=== PATIENT | female | born 1995 | race African-American/Black ===

== ENCOUNTER 2017-01-29 05:26 | Inpatient (IN) ==
[2017-01-29] MEDS ORDERED: KEFZOL 1 GM/D5W 1 GM/50 ML IVPB IV PRN (05:39)
[2017-01-29] MEDS ORDERED: PITOCIN 30 UNITS/LR 30 UNITS/500 ML IV.SOLN IV SCH (05:39)
[2017-01-29] MEDS ORDERED: ZOFRAN IV PRN (05:39)
[2017-01-29] MEDS ORDERED: REGLAN PO ONE (05:39)
[2017-01-29] MEDS ORDERED: STADOL IV PRN (05:39)
[2017-01-29] MEDS ORDERED: PEPCID PO PRN (05:39)
[2017-01-29] MEDS ORDERED: LR 1,000 ML IV SCH (05:39)
[2017-01-29] MEDS ORDERED: PEPCID PO ONE (05:39)
[2017-01-29] MEDS ORDERED: AMPICILLIN 2 GM/NS 2 GM/100 ML IVPB IV ONE (05:39)
[2017-01-29] MEDS ORDERED: TYLENOL PO PRN (05:39)
[2017-01-29] MEDS ORDERED: PEPCID IV PRN (05:39)
[2017-01-29] MEDS ORDERED: SODIUM CHLORIDE 0.9% INJ SCH (05:45)
[2017-01-29 06:41] LABS: URINE SOURCE VOIDED
[2017-01-29 06:41] LABS: MANUAL DIFF NEEDED? NO
[2017-01-29 06:42] LABS: BASO% 0.4 % (0.0-0.8); EOS# 0.04 X1000 (0.0-0.7); EOS% 0.6 % (0.0-10.0); HEMATOCRIT 33.4 % (37.0-47.0); IMM GRAN# 0.06 X1000 (0.0-0.04); IMM GRAN% 0.9 % (0.0-0.5); LYMPH# 1.08 X1000 (1.2-3.4); LYMPH% 15.3 % (20.5-51.1); MCH 28.5 PG (27-31); MCHC 32.9 g/dL (33-37); MCV 86.5 FL (81-99); MONO# 0.74 X1000 (0.11-0.59); MONO% 10.5 % (1.7-9.3); MPV 11.8 FL (7.4-10.4); NEUT% 72.3 % (42.2-75.2); PLT 132 X1000 (130-400); RBC 3.86 XMIL (4.2-5.4)
[2017-01-29 06:51] LABS: BILIRUBIN URINE NEGATIVE (NEGATIVE); BLOOD URINE 1+ (NEGATIVE); CLARITY SL. CLOUDY (CLEAR); COLOR YELLOW; GLUCOSE URINE NEGATIVE (NEGATIVE); LEUKOCYTES URINE 2+ (NEGATIVE); NITRITE URINE NEGATIVE (NEGATIVE); PH URINE 6.5; PROTEIN URINE TRACE mg/dL (NEGATIVE); SP GRAVITY URINE 1.015
[2017-01-29 06:56] LABS: UR AMPHETAMINES QUAL NONE DETECTED (NONE DETECT); UR BARBITUATES QUAL NONE DETECTED (NONE DETECT); UR BENZODIAZEPIN QUAL NONE DETECTED (NONE DETECT); UR CANNABINOIDS QUAL NONE DETECTED (NONE DETECT); UR COCAINE QUAL NONE DETECTED (NONE DETECT); UR MDMA QUAL NONE DETECTED (NONE DETECT); UR METHADONE QUAL NONE DETECTED (NONE DETECT); UR METHAMPHETAMINE QUAL NONE DETECTED (NONE DETECT); UR OPIATES QUAL NONE DETECTED (NONE DETECT); UR OXYCODONE QUAL NONE DETECTED (NONE DETECT); UR PCP QUAL NONE DETECTED (NONE DETECT); UR TCA QUAL NONE DETECTED (NONE DETECT)
[2017-01-29 07:12] LABS: UROBILINOGEN URINE 3+(8 mg/dL)
[2017-01-29] MEDS ORDERED: AMPICILLIN 1 GM/NS 1 GM/50 ML IVPB IV SCH (09:40)
[2017-01-29] MEDS ORDERED: XYLOCAINE-MPF 1% INJ ONE (10:02)
[2017-01-29] MEDS ORDERED: MINERAL OIL ONE (10:03)
[2017-01-29] MEDS ORDERED: PITOCIN 30 UNITS/LR 30 UNITS/500 ML IV.SOLN IV ONE (12:46)
[2017-01-29] MEDS ORDERED: CYTOTEC PO PRN (12:46)
[2017-01-29] MEDS ORDERED: PITOCIN IM PRN (12:46)
[2017-01-29] MEDS ORDERED: M-M-R II VACCINE SUBQ ONE (12:46)
[2017-01-29] MEDS ORDERED: AMBIEN PO PRN (12:46)
[2017-01-29] MEDS ORDERED: HYDROXYZINE PO PRN (12:46)
[2017-01-29] MEDS ORDERED: BOOSTRIX VACCINE IM ONE (12:46)
[2017-01-29] MEDS ORDERED: PERI MEDS (DERMOPLAST/NUPERCAINAL/TUCKS) MISC PRN (12:46)
[2017-01-29] MEDS ORDERED: MINERAL OIL PO PRN (12:46)
[2017-01-29] MEDS ORDERED: XYLOCAINE-MPF 1% INJ PRN (12:46)
[2017-01-29] MEDS ORDERED: NORCO-5 PO PRN (12:46)
[2017-01-29] MEDS ORDERED: PITOCIN 20 UNITS/LR 20 UNITS/1,000 ML IV.SOLN IV SCH (12:46)
[2017-01-29] MEDS ORDERED: BENADRYL IV PRN (12:46)
[2017-01-29] MEDS ORDERED: BENADRYL PO PRN (12:46)
[2017-01-29] MEDS ORDERED: HYDROXYZINE IM PRN (12:46)
[2017-01-29] MEDS: MOTRIN PO PRN ×2 (13:36→21:47)
[2017-01-29] MEDS: NORCO-10 PO PRN ×2 (13:37→17:34)
--- NOTE | 2017-01-29 17:44 | OPERATIVE NOTE ---
PROCEDURE DATE: 01/29/2017 PROCEDURE: Delivery note. DESCRIPTION OF PROCEDURE: The patient underwent sterile controlled spontaneous vaginal delivery of a viable male , weighing 7 pounds 4 ounces. Apgars currently unavailable. No nuchal, no dystocia. Cord doubly clamped and cut. Infant handed off to the waiting pediatric staff. Placenta delivered spontaneously and intact. Uterus firm with Pitocin and massage. Uterus, cervix and vagina explored, no lacerations noted. ESTIMATED BLOOD LOSS: 200 mL. COMPLICATIONS: None. cc: Shaylee Hernandez MD
[2017-01-29] MEDS: PERICOLACE PO SCH (20:34)
[2017-01-30 06:33] LABS: HEMATOCRIT 35.2 % (37.0-47.0); HEMOGLOBIN 11.3 g/dL (12.0-16.0); MCH 27.8 PG (27-31); MCHC 32.1 g/dL (33-37); MCV 86.7 FL (81-99); MPV 11.4 FL (7.4-10.4); RBC 4.06 XMIL (4.2-5.4)
[2017-01-30] MEDS: MOTRIN PO PRN ×2 (08:01→15:53)
[2017-01-30] MEDS: NORCO-10 PO PRN (08:02)
[2017-01-30] MEDS: PRECARE PO SCH (08:47)
[2017-01-30] MEDS: PERICOLACE PO SCH (22:24)
[2017-01-31 08:33] VITALS: BP 115/65
[2017-01-31] MEDS: PRECARE PO SCH (09:11)
[2017-01-31] MEDS: MOTRIN PO PRN (09:57)
== END 2017-01-31 11:30 | disposition home or self-care (01) ==
LOC: P.LD 05:26 → P.WC 14:55
PROVIDERS: ADMIT Obstetrics & Gynecology; ATTEND Obstetrics & Gynecology